=== PATIENT | male | born 1945 | race Caucasian/White ===

== ENCOUNTER 2018-09-02 09:01 | Day surgery (SDC) | payer MEDICARE, OTHER ==
[2018-09-02] VITALS (17 sets, daily range): BP systolic 111–141; BP diastolic 55–78
[~2018-09-02] VITALS: Ht 172.7 cm; Wt 94.9 kg
[2018-09-02] MEDS ORDERED: LISI40TA4 PO (09:32)
[2018-09-02] MEDS ORDERED: FERR325T32 PO (09:32)
[2018-09-02] MEDS ORDERED: SITA100T11 PO (09:32)
[2018-09-02] MEDS ORDERED: METO-539 PO (09:32)
[2018-09-02] MEDS ORDERED: CHOL10002 PO (09:32)
[2018-09-02] MEDS ORDERED: GLYB5TAB7 PO (09:32)
[2018-09-02] MEDS ORDERED: MAGN500C16 PO (09:32)
[2018-09-02] MEDS ORDERED: METF1000 PO (09:32)
[2018-09-02] MEDS ORDERED: APIX5TAB3 PO (09:32)
[2018-09-02] MEDS ORDERED: FENO200C PO (09:32)
[2018-09-02] MEDS ORDERED: HYDR25TA4 PO (09:32)
[2018-09-02] MEDS ORDERED: FLEC150T PO (09:32)
[2018-09-02] MEDS ORDERED: ICOS1CAP PO (09:32)
[2018-09-02] MEDS ORDERED: LANTUS SQ (09:32)
[2018-09-02] MEDS ORDERED: NIFE90TA2 PO (09:32)
[2018-09-02] MEDS ORDERED: normal saline 1000ml 1,000 ML IV SCH (09:35)
[2018-09-02] MEDS ORDERED: fentaNYL/PF 50MCG/1 ML 2ML syringe IV ONE (09:35)
[2018-09-02] MEDS ORDERED: MIDAZolam 5mg/ml 2ml vial IV ONE (09:35)
[2018-09-02 09:55] LABS: BASOPHILS % (AUTO) 0.5 % (0-1); EOSINOPHILS # (AUTO) 0.4 X10'3 (0-0.9); EOSINOPHILS % (AUTO) 6.7 % (0-6); HEMATOCRIT 39.4 % (42.0-52.0); HEMOGLOBIN 12.8 g/dl (14.0-17.9); LYMPHOCYTES # (AUTO) 1.9 X10'3 (1.1-4.8); LYMPHOCYTES % (AUTO) 28.3 % (21-51); MEAN CORPUSCULAR HEMOGLOBIN 27.9 PG (27.0-31.0); MEAN CORPUSCULAR HGB CONC 32.3 % (33.0-36.5); MEAN CORPUSCULAR VOLUME 86.3 FL (78-98); MEAN PLATELET VOLUME 8.7 FL (7.4-10.4); MONOCYTES # (AUTO) 0.5 X10'3 (0-0.9); MONOCYTES % (AUTO) 6.9 % (2-12); NEUTROPHILS # (AUTO) 3.8 X10'3 (1.8-7.7); NEUTROPHILS % (AUTO) 57.6 % (42-75); PLATELET COUNT 253 X10'3 (140-440); RED BLOOD COUNT 4.57 X10'6 (4.70-6.10); RED CELL DISTRIBUTION WIDTH 13.3 % (11.5-14.5); WHITE BLOOD COUNT 6.6 X10'3 (4.5-11.0)
[2018-09-02 10:06] LABS: ALBUMIN 3.7 G/DL (3.4-5.0); ANION GAP 12 (8-16); BLOOD UREA NITROGEN 24 MG/DL (7-18); BUN/CREATININE RATIO 20.2 (5.4-32.0); CHLORIDE 101 MMOL/L (99-107); CREATININE 1.19 MG/DL (0.60-1.10); GLUCOSE 196 MG/DL (70-104); MAGNESIUM 1.9 MG/DL (1.5-2.4); SODIUM 140 MMOL/L (135-145); TOTAL CARBON DIOXIDE 27.5 MMOL/L (24-32); eGFR 60 ML/MIN
[2018-09-02 10:08] LABS: INR 1.1 INR; PROTHROMBIN TIME 10.9 SECONDS (9.0-12.0)
== END 2018-09-02 12:50 | disposition home or self-care (01) ==
LOC: SSTAY O 09:01
PROVIDERS: ATTEND Internal Medicine Cardiovascular Disease
DX: I48.0 Paroxysmal atrial fibrillation (principal); E11.9 Type 2 diabetes mellitus without complications; I34.0 Nonrheumatic mitral (valve) insufficiency; I10 Essential (primary) hypertension; E78.5 Hyperlipidemia, unspecified; Z79.4 Long term (current) use of insulin; Z79.899 Other long term (current) drug therapy; Z98.890 Other specified postprocedural states
CPT/HCPCS: 36415; 80048; 82948; 83735; 85025; 85610; 92960; 93005; J2250; J3010

== ENCOUNTER 2018-09-04 08:51 | Emergency (ER) | payer OTHER, MEDICARE ==
[~2018-09-04] VITALS: Ht 172.7 cm; Wt 94.0 kg
[~2018-09-04 08:51] MED LIST: APIX5TAB3 PO; CHOL10002 PO; FENO200C PO; FERR325T32 PO; FLEC150T PO; GLYB5TAB7 PO; HYDR25TA4 PO; ICOS1CAP PO; LANTUS SQ; LISI40TA4 PO; MAGN500C16 PO; METF1000 PO; METO-539 PO; NIFE90TA2 PO; SITA100T11 PO
[2018-09-04] MEDS ORDERED: meclizine 12.5mg tablet PO ONE (09:45)
[2018-09-04 10:13] LABS: BASOPHILS % (AUTO) 0.3 % (0-1); EOSINOPHILS # (AUTO) 0.2 X10'3 (0-0.9); EOSINOPHILS % (AUTO) 2.6 % (0-6); HEMATOCRIT 36.2 % (42.0-52.0); HEMOGLOBIN 11.9 g/dl (14.0-17.9); LYMPHOCYTES # (AUTO) 1.6 X10'3 (1.1-4.8); LYMPHOCYTES % (AUTO) 16.9 % (21-51); MEAN CORPUSCULAR HEMOGLOBIN 28.8 PG (27.0-31.0); MEAN CORPUSCULAR HGB CONC 32.8 % (33.0-36.5); MEAN CORPUSCULAR VOLUME 87.7 FL (78-98); MEAN PLATELET VOLUME 8.9 FL (7.4-10.4); MONOCYTES # (AUTO) 0.4 X10'3 (0-0.9); MONOCYTES % (AUTO) 4.3 % (2-12); NEUTROPHILS # (AUTO) 7.1 X10'3 (1.8-7.7); NEUTROPHILS % (AUTO) 75.9 % (42-75); PLATELET COUNT 228 X10'3 (140-440); RED BLOOD COUNT 4.13 X10'6 (4.70-6.10); RED CELL DISTRIBUTION WIDTH 13.4 % (11.5-14.5); WHITE BLOOD COUNT 9.3 X10'3 (4.5-11.0)
[2018-09-04 10:33] LABS: ALANINE AMINOTRANSFERASE 54 U/L (12-78); ALBUMIN 3.5 G/DL (3.4-5.0); ALBUMIN/GLOBULIN RATIO 1.1 (1.1-1.5); ALKALINE PHOSPHATASE 44 IU/L (46-116); ANION GAP 13 (8-16); ASPARTATE AMINO TRANSFERASE 35 U/L (10-37); BILIRUBIN,TOTAL 0.2 MG/DL (0.1-1.0); BLOOD UREA NITROGEN 22 MG/DL (7-18); BUN/CREATININE RATIO 15.7 (5.4-32.0); CALCIUM 9.4 MG/DL (8.5-10.1); CHLORIDE 101 MMOL/L (99-107); GLUCOSE 289 MG/DL (70-104); MAGNESIUM 1.7 MG/DL (1.5-2.4); POTASSIUM 4.2 MMOL/L (3.5-5.1); SODIUM 138 MMOL/L (135-145); TOTAL CARBON DIOXIDE 24.4 MMOL/L (24-32); TOTAL PROTEIN 6.8 G/DL (6.4-8.2); eGFR 50 ML/MIN
[2018-09-04 10:55] VITALS: BP 143/77
[2018-09-04] MEDS ORDERED: MECL-111 PO (11:21)
== END 2018-09-04 11:38 | disposition home or self-care (01) ==
LOC: ER 08:52
DX: R42 Dizziness and giddiness (principal); I48.91 Unspecified atrial fibrillation; I10 Essential (primary) hypertension; R06.02 Shortness of breath; E11.9 Type 2 diabetes mellitus without complications; F17.200 Nicotine dependence, unspecified, uncomplicated; Z79.899 Other long term (current) drug therapy
CPT/HCPCS: 36415; 70450; 71045; 80053; 83735; 85025; 93005; 99284; J8597

== ENCOUNTER 2024-07-26 09:24 | Day surgery (SDC) | payer BC ==
[~2024-07-26] VITALS: Ht 172.7 cm; Wt 92.3 kg
[2024-07-26] VITALS (11 sets, daily range): BP systolic 169–198; BP diastolic 72–90; PULSE 48–67; RESP 16; TEMP 97.5; O2SAT 94–98
[~2024-07-26 09:24] MED LIST changes: -FENO200C PO; +FENO200C22 PO; +LISI40TA13 PO; -LISI40TA4 PO; -MAGN500C16 PO; +MAGN500C4 PO; +MECL-302 PO
[2024-07-26 10:13] LABS: BASOPHILS # (AUTO) 0.1 X10'3 (0-0.2); BASOPHILS % (AUTO) 0.9 % (0-1); EOSINOPHILS # (AUTO) 0.7 X10'3 (0-0.9); EOSINOPHILS % (AUTO) 10.5 % (0-6); HEMATOCRIT 38.2 % (42.0-52.0); HEMOGLOBIN 12.7 g/dl (14.0-17.9); LYMPHOCYTES # (AUTO) 1.6 X10'3 (1.1-4.8); LYMPHOCYTES % (AUTO) 24.5 % (21-51); MEAN CORPUSCULAR HEMOGLOBIN 29.4 PG (27.0-31.0); MEAN CORPUSCULAR HGB CONC 33.3 g/dL (33.0-36.5); MEAN CORPUSCULAR VOLUME 88.4 FL (78-98); MONOCYTES # (AUTO) 0.4 X10'3 (0-0.9); MONOCYTES % (AUTO) 6.8 % (2-12); NEUTROPHILS # (AUTO) 3.8 X10'3 (1.8-7.7); NEUTROPHILS % (AUTO) 57.3 % (42-75); PLATELET COUNT 169 X10'3 (140-440); RED BLOOD COUNT 4.32 X10'6 (4.70-6.10); WHITE BLOOD COUNT 6.5 X10'3 (4.5-11.0)
[2024-07-26 10:31] LABS: ALBUMIN 3.4 G/DL (3.4-5.0); ANION GAP 9 (8-16); BLOOD UREA NITROGEN 19 MG/DL (7-18); BUN/CREATININE RATIO 20.7 (10.0-20.0); CALCIUM 8.9 MG/DL (8.5-10.1); CHLORIDE 102 MMOL/L (99-107); CREATININE 0.92 MG/DL (0.60-1.10); GLUCOSE 239 MG/DL (70-104); MAGNESIUM 1.8 MG/DL (1.5-2.4); POTASSIUM 4.2 MMOL/L (3.5-5.1); SODIUM 137 MMOL/L (135-145); TOTAL CARBON DIOXIDE 26.5 MMOL/L (24-32); eCRCL 65 ML/MIN; eGFR 80 ML/MIN
[2024-07-26 10:36] LABS: PROTHROMBIN TIME 10.6 SECONDS (9.0-12.0)
[2024-07-26] MEDS ORDERED: ATOR-2 PO (10:47)
[2024-07-26] MEDS ORDERED: INSU200I4 SQ (10:47)
[2024-07-26] MEDS ORDERED: GABA-530 PO (10:47)
[2024-07-26] MEDS ORDERED: OMEG1CAP61 PO (10:51)
[2024-07-26] MEDS ORDERED: verapamil 2.5 mg/ml inj IV ONE (11:05)
[2024-07-26] MEDS ORDERED: LIDOcaine 1% (10mg/ml) 2ml vial ONE (11:05)
[2024-07-26] MEDS ORDERED: iohexol 350MG/ML 100ml bottle IV ONE ×3 (11:06→12:50)
[2024-07-26] MEDS ORDERED: midazolam 1 mg/ML 2ml injection ONE ×3 (11:06→12:54)
[2024-07-26] MEDS ORDERED: nitroGLYCERIN 500mcg/5mL D5W 0 ML IV ONE (11:06)
[2024-07-26] MEDS ORDERED: iohexol 350 MG/ML 50ML vial IV ONE (11:06)
[2024-07-26] MEDS ORDERED: fentaNYL/PF 50MCG/1 ML 2ML syringe ONE ×2 (11:06→12:55)
[2024-07-26] MEDS ORDERED: heparin 1,000unit/ml 10ml vial 10 ML ONE (11:06)
[2024-07-26] MEDS: normal saline 1,000 ML IV SCH (11:07)
[2024-07-26] MEDS: diphenhydrAMINE 25mg capsule PO PRN (11:07)
[2024-07-26] MEDS: sodium bicarbonate 1meq/ml syr 150 ML in dextrose 5%-water 1,000 ML IV ONE (11:18)
[2024-07-26] MEDS ORDERED: hydrALAZINE 20mg/ml inj. ONE (12:18)
[2024-07-26] MEDS ORDERED: enalaprilat dihydrate 2.5mg/2ml vial IV ONE (12:35)
[2024-07-26] MEDS ORDERED: nitroGLYCERIN 500mcg/5mL D5W 5 ML IV ONE (13:02)
[2024-07-26] MEDS ORDERED: ticagrelor 90mg tablet ONE (13:10)
[2024-07-26] MEDS ORDERED: aspirin 325mg tablet ONE (13:11)
[2024-07-26] MEDS ORDERED: TICA90TA2 PO (14:04)
[2024-07-26] MEDS ORDERED: cloNIDine 0.1 mg tablet PO ONE (14:30)
[2024-07-26] MEDS: lisinopril 20mg tablet PO ONE (14:55)
[2024-07-26] MEDS: metoprolol succinate 25mg (24-HOUR) SR. Tablet PO ONE (15:00)
[2024-07-26] MEDS: enalaprilat dihydrate 2.5mg/2ml vial IV PRN (15:20)
[2024-07-26] MEDS ORDERED: HYDROcodone/acetaminophen 10/325mg tab PO PRN (15:30)
[2024-07-26] MEDS ORDERED: HYDROcodone/acetaminophen 5mg/325mg tablet PO PRN (15:30)
[2024-07-26] MEDS ORDERED: ondansetron/PF 4mg/2ml inj IV PRN (15:30)
[2024-07-26] MEDS ORDERED: proCHLORperazine 10 MG/2 ml inj IV PRN (15:30)
[2024-07-26] MEDS ORDERED: nitroGLYCERIN 0.4mg SUBLingual tab SL PRN (16:25)
== END 2024-07-26 17:26 | disposition home or self-care (01) ==
LOC: SSTAY O 09:24
PROVIDERS: ATTEND Internal Medicine Cardiovascular Disease
DX: R07.89 Other chest pain (principal); I25.10 Atherosclerotic heart disease of native coronary artery without angina pectoris; I45.10 Unspecified right bundle-branch block; I49.3 Ventricular premature depolarization; I10 Essential (primary) hypertension; E11.9 Type 2 diabetes mellitus without complications; E78.5 Hyperlipidemia, unspecified; I48.0 Paroxysmal atrial fibrillation; I34.0 Nonrheumatic mitral (valve) insufficiency; Z87.891 Personal history of nicotine dependence; Z79.01 Long term (current) use of anticoagulants; Z79.899 Other long term (current) drug therapy; Z98.890 Other specified postprocedural states; Z88.8 Allergy status to other drugs, medicaments and biological substances; Z82.49 Family history of ischemic heart disease and other diseases of the circulatory system
CPT/HCPCS: 36415; 80048; 82948; 83735; 85025; 85610; 93005; 93458; 99152; 99153; C1874; C9600; C9601; J0360; J1644; J2003; J2250; J3010; J3490; J7030; J7070; Q0163; Q9967; A6258; A6402; C1725; C1751; C1769; C1894

== ENCOUNTER 2024-09-03 06:16 | Day surgery (SDC) | payer MEDICARE, OTHER ==
[2024-09-03] VITALS (9 sets, daily range): BP systolic 156–194; BP diastolic 56–82; PULSE 55–62; RESP 12–14; TEMP 98; O2SAT 95–100
[~2024-09-03] VITALS: Ht 172.7 cm; Wt 92.8 kg
[~2024-09-03 06:16] MED LIST changes: +ATOR-2 PO; -FENO200C22 PO; -FLEC150T PO; +GABA-530 PO; -GLYB5TAB7 PO; -ICOS1CAP PO; +INSU200I4 SQ; -LANTUS SQ; -MECL-302 PO; +OMEG1CAP61 PO; -SITA100T11 PO; +TICA90TA2 PO
[2024-09-03] MEDS ORDERED: ATOR40TA72 PO (06:56)
[2024-09-03] MEDS ORDERED: NIFE-128 PO (06:56)
[2024-09-03] MEDS ORDERED: TICA90TA PO (06:56)
[2024-09-03] MEDS ORDERED: SPIR25TA5 PO (06:56)
[2024-09-03] MEDS ORDERED: MAGN500T9 PO (06:56)
[2024-09-03 07:18] LABS: ALBUMIN 3.6 G/DL (3.4-5.0); ANION GAP 8 (8-16); BASOPHILS % (AUTO) 0.8 % (0-1); BLOOD UREA NITROGEN 19 MG/DL (7-18); BUN/CREATININE RATIO 21.1 (10.0-20.0); CALCIUM 8.9 MG/DL (8.5-10.1); CHLORIDE 106 MMOL/L (99-107); EOSINOPHILS # (AUTO) 0.8 X10'3 (0-0.9); EOSINOPHILS % (AUTO) 12.8 % (0-6); GLUCOSE 165 MG/DL (70-104); HEMATOCRIT 38.1 % (42.0-52.0); HEMOGLOBIN 12.6 g/dl (14.0-17.9); LYMPHOCYTES # (AUTO) 1.5 X10'3 (1.1-4.8); LYMPHOCYTES % (AUTO) 22.7 % (21-51); MAGNESIUM 3.7 MG/DL (1.5-2.4); MEAN CORPUSCULAR HEMOGLOBIN 29.4 PG (27.0-31.0); MEAN CORPUSCULAR VOLUME 89.3 FL (78-98); MEAN PLATELET VOLUME 9.2 FL (7.4-10.4); MONOCYTES # (AUTO) 0.6 X10'3 (0-0.9); MONOCYTES % (AUTO) 8.6 % (2-12); NEUTROPHILS # (AUTO) 3.6 X10'3 (1.8-7.7); NEUTROPHILS % (AUTO) 55.1 % (42-75); PLATELET COUNT 186 X10'3 (140-440); RED BLOOD COUNT 4.27 X10'6 (4.70-6.10); RED CELL DISTRIBUTION WIDTH 14.8 % (11.5-14.5); SODIUM 142 MMOL/L (135-145); TOTAL CARBON DIOXIDE 27.8 MMOL/L (24-32); WHITE BLOOD COUNT 6.5 X10'3 (4.5-11.0); eCRCL 67 ML/MIN; eGFR 82 ML/MIN
[2024-09-03] MEDS: normal saline 1,000 ML IV SCH (07:33)
[2024-09-03] MEDS: sodium bicarbonate 1meq/ml syr 150 ML in dextrose 5%-water 1,000 ML IV ONE (07:33)
[2024-09-03] MEDS: diphenhydrAMINE 25mg capsule PO PRN (07:33)
[2024-09-03 08:01] LABS: INR 1.1 INR; PROTHROMBIN TIME 11.2 SECONDS (9.0-12.0)
[2024-09-03] MEDS ORDERED: iohexol 350 MG/ML 50ML vial IV ONE (08:23)
[2024-09-03] MEDS ORDERED: heparin 1,000unit/ml 10ml vial 10 ML ONE (08:23)
[2024-09-03] MEDS ORDERED: fentaNYL/PF 50MCG/1 ML 2ML syringe ONE (08:23)
[2024-09-03] MEDS ORDERED: LIDOcaine 1% (10mg/ml) 2ml vial ONE (08:23)
[2024-09-03] MEDS ORDERED: midazolam 1 mg/ML 2ml injection ONE ×2 (08:23→09:31)
[2024-09-03] MEDS ORDERED: verapamil 2.5 mg/ml inj IV ONE (08:23)
[2024-09-03] MEDS ORDERED: iohexol 350MG/ML 100ml bottle IV ONE (08:24)
[2024-09-03] MEDS ORDERED: nitroGLYCERIN 500mcg/5mL D5W 5 ML IV ONE (08:25)
[2024-09-03] MEDS ORDERED: normal saline 1000ml 1,000 ML IV SCH ×2 (09:30→10:45)
[2024-09-03] MEDS ORDERED: sodium bicarbonate 1meq/ml inj 150 ML in dextrose 5%-water 1,000 ML IV SCH (09:30)
[2024-09-03] MEDS ORDERED: ticagrelor 90mg tablet ONE (10:11)
[2024-09-03] MEDS ORDERED: HYDROcodone/acetaminophen 5mg/325mg tablet PO PRN (10:45)
[2024-09-03] MEDS ORDERED: ondansetron/PF 4mg/2ml inj IV PRN (10:45)
[2024-09-03] MEDS ORDERED: proCHLORperazine 10 MG/2 ml inj IV PRN (10:45)
[2024-09-03] MEDS ORDERED: HYDROcodone/acetaminophen 10/325mg tab PO PRN (10:45)
== END 2024-09-03 14:00 | disposition home or self-care (01) ==
LOC: SSTAY O 06:16
PROVIDERS: ATTEND Internal Medicine Cardiovascular Disease
DX: I25.119 Atherosclerotic heart disease of native coronary artery with unspecified angina pectoris (principal); I10 Essential (primary) hypertension; E78.5 Hyperlipidemia, unspecified; E11.9 Type 2 diabetes mellitus without complications; Z87.891 Personal history of nicotine dependence; Z79.899 Other long term (current) drug therapy
CPT/HCPCS: 36415; 80048; 82948; 83735; 85025; 85610; 93005; 99152; 99153; A6258; A6402; C1751; C1769; C1874; C1894; C9600; J1644; J2003; J2250; J3010; J3490; J7030; J7070; Q0163; Q9967; Z7610